=== PATIENT | female | born 1995 ===

== ENCOUNTER 2022-04-15 11:42 | Outpatient (CLI) | payer OTHER | END 2022-04-15 11:43 | disposition home or self-care (01) | LOC: RAD 11:42 | PROVIDERS: ATTEND Family Medicine | DX: R76.12 Nonspecific reaction to cell mediated immunity measurement of gamma interferon antigen response without active tuberculosis (principal) | CPT/HCPCS: 71045 ==

== ENCOUNTER 2022-12-03 18:13 | Emergency (ER) | payer SELFPAY ==
[2022-12-03] MEDS ORDERED: Promethazine HCl 25 MG/ML VIAL ONE (18:40)
[2022-12-03 18:43] LABS: #Monocytes 0.6 thou/uL (0.11-0.59); #Neutrophils 13.6 thou/uL (1.40-6.50); %Basophils 0.2 % (0.0-1.0); %Eosinophils 0.2 % (0.0-10.0); %Lymphocytes 14.7 % (21.0-51.0); %Monocytes 3.6 % (0.0-10.0); %Neutrophils 80.9 % (42.0-75.0); Hemoglobin 14.3 g/dL (12.0-16.0); Mean Corpuscular HGB CONC 33.1 g/dL (32.0-36.0); Mean Corpuscular Hemoglobin 30.4 pg (27.0-31.0); Mean Corpuscular Volume 91.7 fl (78.0-98.0); Mean Platelet Volume 10.8 fL (7.4-10.4); Platelet Count 489 10x3/uL (130-400); RBC Distribution Width 12.7 % (11.5-14.5); Red Blood Cell (RBC) Count 4.71 mill/uL (4.20-5.40); White Blood Cell (WBC) Count 16.8 10x3/uL (4.8-10.8)
[2022-12-03 19:16] LABS: ALT (SGPT) 13 U/L (8-55); AST (SGOT) 26 U/L (5-34); Albumin 4.5 g/dL (3.5-5.0); Alkaline Phosphatase 85 U/L (40-110); Anion Gap 21 mmol/L (10-20); Bilirubin, Total 0.3 mg/dL (0.2-1.2); Calc. Creatinine Clearance 0 mL/min (70-130); Calcium 10.8 mg/dL (7.8-10.44); Carbon Dioxide 15 mmol/L (22-29); Chloride 106 mmol/L (98-107); Estimated GFR 124; Glucose 99 mg/dL (70-105); Lipase 13 U/L (8-78); Protein, Total 8.5 g/dL (6.0-8.3); Sodium 138 mmol/L (136-145)
[2022-12-03 19:30] LABS: BUN (Urea Nitrogen) 6 mg/dL (7.0-18.7)
[2022-12-03] MEDS ORDERED: Dextrose 50% Abboject 50 ML SYRINGE ONE (19:51)
[2022-12-03] MEDS ORDERED: diphenhydrAMINE 50 MG/ML VIAL ONE (19:51)
[2022-12-03] MEDS ORDERED: Metoclopramide HCl 10 MG TAB ONE (19:51)
[2022-12-03 21:42] LABS: Bacteria/HPF None Seen HPF (None Seen); Bilirubin Negative (Negative); Blood, Urine Negative (Negative); CAUTI Indications for Culture Pregnancy; Clarity Turbid (Clear); Glucose, Urine (Dipstick) Normal (Negative); Ketone, Urine Greater than 150 mg/dL (Negative); Leukocyte Negative Leu/uL (Negative); Nitrite Negative (Negative); Protein, Urine (Dipstick) 100 mg/dL (Neg-Trace); RBC/HPF 0-3 HPF (0-3); Specific Gravity, Urine 1.035 (1.002-1.036); Squamous Epithelial 21-50 HPF (0-3); Urobilinogen Normal mg/dL (Less than 2); WBC/HPF 0-3 HPF (0-3); pH, Urine 5.5 (5.0-9.0)
[2022-12-03 21:46] LABS: Urine Culture Reflex Yes Yes
[2022-12-03 22:32] LABS: Lactic Acid 0.8 mmol/L (0.5-2.2)
== END 2022-12-03 23:05 | disposition short-term general hospital (02) ==
LOC: ERS 18:13
DX: O21.1 Hyperemesis gravidarum with metabolic disturbance (principal); Z3A.21 21 weeks gestation of pregnancy; Z87.891 Personal history of nicotine dependence
CPT/HCPCS: 36415; 80053; 81001; 83605; 83690; 85025; 87086; J1200; J2550; J7999